=== PATIENT | female | born 1950 | race Caucasian/White ===

== ENCOUNTER 2016-10-30 04:06 | Inpatient (IN) | payer OTHER ==
[2016-10-24 16:37] LABS: WBC (NOT ORDERED) (RFLEX) 0 (0-5)
[2016-10-24 17:30] LABS: BASOPHILS 0.4 %; BASOPHILS ABSOLUTE 0.03 10/3/uL (0.0-0.16); EOSINOPHILS 1.8 %; EOSINOPHILS ABSOLUTE 0.13 10/3/uL (0.0-0.53); HEMOGLOBIN 14.5 g/dL (12.0-16.0); IMMATURE GRANULOCYTES 0.1 %; IMMATURE GRANULOCYTES ABSOLUTE 0.01 10/3/uL (0.0-0.11); LYMPHOCYTES 47.1 %; LYMPHOCYTES ABSOLUTE 3.37 10/3/uL (0.67-4.30); MEAN CORPUSCULAR HEMOGLOB 29.9 pg (26.0-34.0); MEAN CORPUSCULAR VOLUME 87.8 fL (80-100); MEAN PLATELET VOLUME 10.4 fL (9.2-13.0); MONOCYTES 7.5 %; MONOCYTES ABSOLUTE 0.54 10/3/uL (0.21-1.20); NEUTROPHILS 43.1 %; NEUTROPHILS ABSOLUTE 3.08 10/3/uL (2.02-8.40); PLATELET COUNT 224 10/3/uL (150-400); RBC DISTRIBUTION WIDTH 13.7 % (12.0-16.0); RED CELL COUNT 4.85 10/6/uL (4.0-5.6); WHITE BLOOD CELLS 7.2 10/3/uL (4.5-10.5)
[2016-10-24 17:34] LABS: HEMATOCRIT 42.6 % (36.0-48.0); MANUAL DIFF NO %
[2016-10-24 17:35] LABS: PARTIAL THROMBO TIME 32.7 SEC (22.5-37.2); PROTIME (NOT ORD) 13.2 SEC (12.0-14.5)
[2016-10-24 17:47] LABS: ASCORBIC ACID (UR NOT ORDER) NEG (NEG); BILIRUBIN, URINE NEGATIVE (NEG); KETONE, URINE NEGATIVE (NEG); LEUKOCYTE ESTERASE(NOT OR NEG (NEG)
[2016-10-24 18:03] LABS: A/G RATIO 0.9 (0.7-1.9); ALBUMIN 3.7 G/DL (3.5-5.0); ALKALINE PHOSPHATASE 141 U/L (45-117); BUN (BLOOD UREA NITROGEN) 18 MG/DL (6-23); CALCIUM, SERUM 9.6 MG/DL (8.5-10.4); CHLORIDE, SERUM 105 MMOL/L (96-112); CO2 (CARBON DIOXIDE) 26 MMOL/L (24-34); CREATININE 0.64 MG/DL (0.55-1.02); GFR AFRICAN AMERICAN 107 ML/MIN (>=60); GFR NON AFRICAN AMERICAN 92 ML/MIN (>=60); GLOBULIN 3.9 G/DL (2.5-4.1); GLUCOSE, SERUM 84 MG/DL (60-99); POTASSIUM, SERUM 3.8 MMOL/L (3.5-5.3); SGOT(AST) 21 U/L (5-40); SGPT(ALT) 25 U/L (5-65); SODIUM, SERUM 140 MMOL/L (135-148); TOTAL BILIRUBIN 0.7 MG/DL (0-1.2); TOTAL PROTEIN 7.6 G/DL (6.0-8.5)
--- NOTE | ~2016-10-30 | OP ---
Record Of Operation [facility] [address] [place]. [address] NAME: SOBEIDA MIRZA : [birth year] STATUS : ADM IN PAT#: [id number] AGE: 66 ADM/REG DATE : 10/30/16 MR#: [id number] REPORT SERV DATE: 10/30/16 DICTATED BY: FRANKLIN MCDANIEL DATE: 10/30/16 REPORT STATUS : Draft TRANSCRIBED BY: MODDonna DATE: 10/30/16 DATE OF PROCEDURE: 10/30/2016 PREOPERATIVE DIAGNOSIS: Left irreparable rotator cuff tear. POSTOPERATIVE DIAGNOSIS: Left irreparable rotator cuff tear. PROCEDURE PERFORMED: Left reverse shoulder arthroplasty ANESTHESIA: General endotracheal with regional block per Anesthesia. IMPLANTS: Susan BF trabecular metal reverse arthroplasty system. INDICATIONS: A 66-year-old female who had a marginally repairable rotator cuff tear. She underwent arthroscopic repair. She then had a fall postoperatively, which resulted in re- tear. At this phase her cuff was bad enough to require arthroplasty as a definitive solution. We discussed risks, benefits, and alternatives, and patient verbalized understanding and wished to proceed with operative intervention. PROCEDURE IN DETAIL: The patient was induced in supine position. She was taken to the beach chair position with care to maintain the cervical lordosis. A time-out protocol was enforced. Ancef was administered. The deltopectoral interval was utilized, cephalic vein was taken laterally. Copious scar in the subdeltoid area was lysed. We placed a Welch retractor, released the pectoralis major, and soft tissue tenodesed the biceps to the remnant. We suture ligated the anterior circumflex humeral and performed a peel technique on the subscapularis. We smoothed down the lesser tuberosity. We then released the capsule and dislocated the shoulder, and sequentially reamed up to a 10. We cut a 20 degree retroverted neck cut and then prepared the metaphyseal geometry. Attention was to the turned to the glenoid. We found the axillary nerve and released the inferior capsule. We resected the labrum and had excellent exposure of the glenoid, we then machined the glenoid for the trabecular metal base plate, and placed two locking screws with good purchase. Followed by a 36 mm glenosphere, which was carefully checked to ensure engagement of the Yanez taper. We then performed a trial reduction with a 0 poly, which had satisfactory tension. We impacted the press fit stem around [employer] in 20 degrees of retroversion and placed a Hemovac drain. We repaired the subscapularis around the stem. We irrigated copiously with pulsatile lavage. Tranexamic acid was utilized as well. The wound was closed in layers. The patient tolerated the procedure well and was taken to the PACU in stable condition. POSTOPERATIVE PLAN: Reverse shoulder protocol. Record Of Operation [address] [place]. [address] NAME: SOBEIDA MIRZA [birth year] : [birth year] STATUS : ADM IN PAT#: [id number] AGE: 66 ADM/REG DATE : 10/30/16 MR#: [id number] REPORT SERV DATE: 10/30/16 DICTATED BY: FRANKLIN MCDANIEL DATE: 10/30/16 REPORT STATUS : Draft TRANSCRIBED BY: CHANELLE DATE: 10/30/16 BSS/CHANELLE Franklin Mcdaniel M.D. / [id number] CC: Franklin Mcdaniel M.D.
[~2016-10-30 04:06] MED LIST: ALKA-SELTZER H1 EACH PO; ASA5GR PO; DITRO5 PO; MAXIMUM D3 PO; MOBIC15 MG PO; ULTRAM50 PO; VESICARE10 MG PO; VITAMIN B PO; VITAMIN D1000 UNI1 PO
[2016-10-31 04:34] LABS: HEMATOCRIT 38.7 % (36.0-48.0)
[2016-10-31 04:43] LABS: CHLORIDE, SERUM 111 MMOL/L (96-112); CO2 (CARBON DIOXIDE) 24 MMOL/L (24-34); CREATININE 0.62 MG/DL (0.55-1.02); GFR AFRICAN AMERICAN 108 ML/MIN (>=60); GFR NON AFRICAN AMERICAN 93 ML/MIN (>=60); POTASSIUM, SERUM 4.2 MMOL/L (3.5-5.3); SODIUM, SERUM 144 MMOL/L (135-148)
[2016-10-31 04:44] LABS: BUN (BLOOD UREA NITROGEN) 12 MG/DL (6-23); CALCIUM, SERUM 8.6 MG/DL (8.5-10.4); GLUCOSE, SERUM 111 MG/DL (60-99)
[2016-10-31] MEDS ORDERED: PERCOCET 7.5/321 TAB PO (08:07)
[2016-10-31] MEDS ORDERED: PR25 PO (08:08)
[2016-10-31] MEDS ORDERED: ASA5GR PO (08:08)
== END 2016-10-31 13:55 | disposition home or self-care (01) | DRG 483 ==
LOC: SDC/OF 04:06 → PACU 08:39 → 3SO 10:06
PROVIDERS: Orthopaedic Surgery Sports Medicine
PROC: 0RRK00Z Replacement of Left Shoulder Joint with Reverse Ball and Socket Synthetic Substitute, Open Approach (ICD-10-PCS; principal; 2016-10-30 05:30)
DX: M75.122 Complete rotator cuff tear or rupture of left shoulder, not specified as traumatic (principal)
CPT/HCPCS: 36415; 71020; 73030-LT; 80048; 80053; 81001; 85014; 85018; 85025; 85610; 85730; 86850; 86900; 86901; 87641; 88305; 88311; 93005; 97161-GP; 97530-GP; A9270-GY; C1713; C1776; J0690; J1885; J2250; J2270; J2370; J2405; J2710; J2795; J3010